=== PATIENT | male | born 1950 | race Caucasian/White ===

== ENCOUNTER 2016-09-06 15:36 | Emergency (ER) | payer OTHER ==
[2016-09-06 15:41] VITALS: BP 116/92; BMI 38.7
[2016-09-06 16:27] LABS: BILIRUBIN,URINE NEGATIVE (NEGATIVE); BLOOD/HEMOGLOBIN,URINE 5+ (NEGATIVE); GLUCOSE, URINE NEGATIVE (NEGATIVE); KETONES,URINE 1+ (NEGATIVE); LEUKOCYTE ESTERASE ,URINE 1+ (NEGATIVE); NITRITES,URINE NEGATIVE (NEGATIVE); PROTEIN,URINE 2+ (NEGATIVE); UROBILINOGEN,URINE 1+ (NORMAL)
[2016-09-06 16:54] LABS: AMORPHOUS SEDIMENT,UR 1+ /HPF (NEGATIVE); APPEARANCE,URINE CLEAR (CLEAR); BACTERIA,URINE TRACE /HPF (NEGATIVE); COLOR,URINE DARK YELLOW (YELLOW); MUCUS,URINE MODERATE /HPF (NEGATIVE); RBC,URINE 55-60 /HPF (NEGATIVE); SQUAMOUS EPITHELIAL CELL,UR FEW /HPF (NEGATIVE)
[2016-09-06] MEDS ORDERED: NS 1000 ML 1,000 ML IV ONE (16:58)
--- NOTE | 2016-09-06 16:58 | DR.MBACK ---
HPI - Time Seen Time seen: 16:45 - PCP Primary Care Physician: THONG - Complaint Chief Complaint Doctors Comments: l flank pain Chief Complaint:: PT. C/O LEFT LOWER BACK PAIN AND LEFT FLANK PAIN, POSSIBLE KIDNEY STONE. PAIN OCCURED TWO HOURS HOT BOX SPOTTER. PT. TOOK SOME PAIN MEDICATION HOT BOX SPOTTER WHICH RELIEVED HIS PAIN FROM A 10 TO A 2. - Reviewed Nurses Notes Review: Yes - Source History Provided: Patient - Mode of Arrival Mode of Arrival: Ambulatory - Timing Onset of Chief Complaint: 09/06/16 - Duration Duration: Constant Duration: Hours - Location Back Pain Location: Left, Lower, BACK, Flank, Lumbar Radiation To: None - Severity Severity: Extreme - Quality Quality: Cramping, Tearing - Context Onset: Spontaneous Circumstance: Unknown History of: Urolithiasis - Modifying Factors Worsened By: Movement, Twisting, Breathing, Walking - Associated Signs and Symptoms Numbness: None Weakness: None PMH - PMH Past Medical History: Yes Past Medical History: Arthritis, GERD, Hypothyroidism, Kidney Stones Past Surgical History: Yes Surgical History: Ortho Surgery, Other Past Surgical History Comment: HEMORRHOID, SINUS SURGERY X 2 - Family History History of Family Medical Conditions: No - Social History Does patient currently use any type of tobacco product: No Have you used tobacco products in the last 12 months: No Type of Tobacco Use: None Does any household member use tobacco: No Alcohol Use: None Do you use any recreational Drugs:: No Lives With: Spouse Lives Where: Home - infectious screening In the last 2 months have you had wt loss of >10#?: NO Have you had fever, night sweats or hemotysis?: No Have you traveled outside the country in the last 6 months?: No Isolation: Standard ROS - Review of Systems Respiratoy: No Symptoms Reported Cardiovascular: No Symptoms Reported Gastrointestinal/Abdominal: No Symptoms Reported Genitourinary: No Symptoms Reported, Hematuria, Other (l flan k pain) Neurological: No Symptoms Reported Musculoskeletal: Back Pain Integumentary: No Symptoms Reported Hematologic/Lymphatic: No Symptoms Reported Endocrine: No Symptoms Reported Psychiatric: No Symptoms Reported All Other Systems: Reviewed and Negative PE - Vital Signs Vitals: Temperature 98.0 F Pulse Rate 93 Respiratory Rate 17 Blood Pressure [Right Arm] 146/68 Blood Pressure 116/92 O2 Sat by Pulse Oximetry 95 - General Limitations: No Limitations - Chest Chest Inspection: Normal Inspection - Respiratory Respiratory Exam: Normal Lung Sounds Bilat Respiratory Exam: Bilateral Clear to Auscultation - Cardiovascular Cardiovascular Exam: Regular Rate, Normal Rhythm, Normal Heart Sounds - Abdominal Exam Abdominal Tenderness: Other (l flank pain) - Back Back Exam: (L) CVA Tenderness - Psychiatric Psychiatric Exam: Normal Affect, Normal Mood - Skin Skin Exam: Warm, Dry, Intact, Normal Color ROR - Labs Reviewed Laboratory: Specimen Type Clean catch urine 09/06/16 16:19 Urine Color Dark yellow (YELLOW) 09/06/16 16:19 Urine Appearance Clear (CLEAR) 09/06/16 16:19 Urine pH 5.0 (5.0 - 8.0) 09/06/16 16:19 Ur Specific Lyons 1.025 (1.000-1.030) 09/06/16 16:19 Urine Protein 2+ (NEGATIVE) 09/06/16 16:19 Urine Glucose (UA) Negative (NEGATIVE) 09/06/16 16:19 Urine Ketones 1+ (NEGATIVE) 09/06/16 16:19 Urine Occult Blood 5+ (NEGATIVE) 09/06/16 16:19 Urine Nitrite Negative (NEGATIVE) 09/06/16 16:19 Urine Bilirubin Negative (NEGATIVE) 09/06/16 16:19 Urine Urobilinogen 1+ (NORMAL) 09/06/16 16:19 Ur Leukocyte Esterase 1+ (NEGATIVE) 09/06/16 16:19 Urine RBC 55-60 /HPF (NEGATIVE) 09/06/16 16:19 Urine WBC 2-3 /HPF (NEGATIVE) 09/06/16 16:19 Ur Squamous Epith Cells Few /HPF (NEGATIVE) 09/06/16 16:19 Amorphous Sediment 1+ /HPF (NEGATIVE) 09/06/16 16:19 Urine Bacteria Trace /HPF (NEGATIVE) 09/06/16 16:19 Urine Mucus Moderate /HPF (NEGATIVE) 09/06/16 16:19 Ur Culture Indicated? No/not indicated 09/06/16 16:19 - Diagnosis Discharge Problem: Urolithiasis - Discharge Plan Disposition: 01 HOME, SELF-CARE Condition: Stable - Follow ups/Referrals Follow ups/Referrals: Jf Jay [Primary Care Provider] - 3 days - Instructions
[2016-09-06 17:17] LABS: BASOPHILS % (AUTO) 0.4 % (0.2-1.0); EOSINOPHILS # (AUTO) 0.1 x10^3/uL (0.0-0.2); EOSINOPHILS % (AUTO) 1.3 % (0.9-2.9); HEMATOCRIT 46.6 % (42.0-54.0); HEMOGLOBIN 16.3 g/dL (13.5-18.0); LYMPHOCYTES # (AUTO) 1.3 X10^3/uL (1.3-2.9); LYMPHOCYTES % (AUTO) 17.7 % (21.0-51.0); MEAN CORPUSCULAR HEMOGLOBIN 32.1 pg (27.0-34.0); MEAN CORPUSCULAR HGB CONC 34.9 g/dL (33.0-35.0); MEAN CORPUSCULAR VOLUME 91.9 fL (80.0-100.0); MEAN PLATELET VOLUME 9.1 fL (7.4-11.0); MONOCYTES # (AUTO) 0.6 x10^3/uL (0.3-0.8); MONOCYTES % (AUTO) 8.2 % (0.0-13.0); NEUTROPHILS # (AUTO) 5.5 x10^3/uL (2.2-4.8); NEUTROPHILS % (AUTO) 72.4 % (42.0-75.0); PLATELET COUNT 189 X10^3/uL (150.0-450.0); RED BLOOD COUNT 5.07 X10^6/uL (4.7-6.0); RED CELL DISTRIBUTION WIDTH 14.4 % (11.6-16.5); WHITE BLOOD COUNT 7.6 X10^3/uL (3.6-10.0)
[2016-09-06 17:30] LABS: ALANINE AMINOTRANSFERASE 35 Units/L (12-78); ALKALINE PHOSPHATASE 89 Units/L (46-116); ASPARTATE AMINO TRANSFERASE 21 Units/L (15-37); BLOOD UREA NITROGEN 20 mg/dL (7-18); CALCIUM 8.9 mg/dL (8.5-10.1); CARBON DIOXIDE 26.6 mmol/L (21-32); CHLORIDE 106 mmol/L (98-107); CREATININE 1.29 mg/dL (0.70-1.30); GLUCOSE 96 mg/dL (65-99); SODIUM 141 mmol/L (136-145); TOTAL PROTEIN 7.6 g/dL (6.4-8.2); eGFR BLACK RACES > 60 (>60); eGFR NON BLACK RACES 59 (>60)
--- NOTE | 2016-09-06 17:59 | CT ---
HISTORY: Left flank pain, possible kidney stone. Study: CT abdomen and pelvis without contrast Comparison: Acute abdominal series dated October 05 2015. Technique: Multiple axial images of the abdomen and pelvis were obtained from the lung bases to the pubic symph ysis without the administration of IV contrast. Dose reduction techniques including Automated Expos ure Control (AEC) and adjustment of mA and kV were utilized. Findings: Bibasilar scarring versus atelectasis. Otherwise, the visualized portions of the lung bases are unre markable. 3 cm right inferior renal pole simple appearing cyst. The right kidney is otherwise unrema rkable. Multiple nonobstructing left renal nephroliths, the largest measuring 3 mm within the interp olar left kidney. The liver, spleen, pancreas, and adrenal glands are unremarkable in their CT appea farrukh. The gallbladder is unremarkable in its CT appearance. No significant mesenteric lymphadenopa thy or stranding can be observed. No free fluid or free air is seen within the abdomen. Scattered colonic diverticular without evidence of diverticulitis. Otherwise, the visualized large and small b owel appear normal. The appendix is normal. The urinary bladder is grossly unremarkable. Remote comp ression fracture of the L4 vertebral body. Bilateral L5 pars defects with associated grade 2/3 anter ior listhesis of L5 on S1. Remaining osseous structures appear normal for age. IMPRESSION: 1. No CT evidence of acute abdominal/pelvic pathology. 2. Other chronic findings as above. Reported By:
== END 2016-09-06 18:27 | disposition home or self-care (01) ==
LOC: ER 15:53
DX: N20.9 Urinary calculus, unspecified (principal)
CPT/HCPCS: 36415; 74176; 80053; 81001; 85025; 96365; 99283; A4222

== ENCOUNTER 2018-11-27 17:18 | Observation (INO) ==
[2018-11-27 18:06] VITALS: BMI 38.2
[2018-11-27] MEDS ORDERED: NS 1000 ML 1,000 ML ONE (18:07)
[2018-11-27] MEDS: NS 1000 ML 1,000 ML IV SCH (18:34)
[2018-11-27 18:49] LABS: BASOPHILS % (AUTO) 0.4 % (0.2-1.0); EOSINOPHILS # (AUTO) 0.1 x10^3/uL (0.0-0.2); EOSINOPHILS % (AUTO) 1.6 % (0.9-2.9); HEMATOCRIT 46.9 % (42.0-54.0); HEMOGLOBIN 15.8 g/dL (13.5-18.0); LYMPHOCYTES # (AUTO) 1.5 X10^3/uL (1.3-2.9); LYMPHOCYTES % (AUTO) 28.5 % (21.0-51.0); MEAN CORPUSCULAR HEMOGLOBIN 28.2 pg (27.0-34.0); MEAN CORPUSCULAR HGB CONC 33.7 g/dL (33.0-35.0); MEAN CORPUSCULAR VOLUME 83.7 fL (80.0-100.0); MEAN PLATELET VOLUME 8.4 fL (7.4-11.0); MONOCYTES # (AUTO) 0.5 x10^3/uL (0.3-0.8); MONOCYTES % (AUTO) 9.1 % (0.0-13.0); NEUTROPHILS # (AUTO) 3.2 x10^3/uL (2.2-4.8); NEUTROPHILS % (AUTO) 60.4 % (42.0-75.0); PLATELET COUNT 173 X10^3/uL (150.0-450.0); RED CELL DISTRIBUTION WIDTH 18.9 % (11.6-16.5); WHITE BLOOD COUNT 5.3 X10^3/uL (3.6-10.0)
[2018-11-27 19:11] LABS: ALANINE AMINOTRANSFERASE 38 Units/L (12-78); ALKALINE PHOSPHATASE 85 Units/L (46-116); ASPARTATE AMINO TRANSFERASE 20 Units/L (15-37); BLOOD UREA NITROGEN 25 mg/dL (7-18); CALCIUM 8.7 mg/dL (8.5-10.1); CHLORIDE 102 mmol/L (98-107); CKMB % 0.7 % (<4); CREATINE KINASE 234 Units/L (39-308); CREATINE KINASE MB 1.7 ng/mL (0-4.0); CREATININE 1.34 mg/dL (0.70-1.30); MAGNESIUM 1.8 mg/dL (1.7-2.9); SODIUM 137 mmol/L (136-145); TOTAL PROTEIN 7.3 g/dL (6.4-8.2); TROPONIN I 0.07 ng/mL (0-1.5); eGFR NON BLACK RACES 56 (>60)
[2018-11-27] MEDS ORDERED: MORPHINE SULFATE INJ 2 MG INJ IVP PRN (21:08)
--- NOTE | 2018-11-27 21:11 | DR.UPDATE ---
H&P Update History and Physical Update: History and Physical reviewed and patient examined. Changes noted: Yes with the following: WAS SEEN IN THE OFFICE TODAY FOR COMPLAINTS OF CHEST PAIN, SHORTNESS OF BREATH, DIZZINESS, AND NEAR SYNCOPE. WE ADMITTED PATIENT FOR FURTHER EVALUATION AND TREATMENT. ON ADMISSION WE PLAN TO OBTAIN SERIAL CARDIAC ENZYMES AND EKGS, CBC, CMP, BRAIN CT, CAROTID DOPPLER, AND ECHO. WE WILL START NS AT 80ML/HR AND MORPHINE 2MG IV Q4H PRN PAIN. OTHERWISE, WE WILL FOLLOW UP WITH AM LABS AND CONTINUE TO MONITOR. Prescription drug monitoring program results: PDMP was not reviewed
--- NOTE | 2018-11-27 21:59 | CT ---
CT HEAD WITHOUT CONTRAST CLINICAL HISTORY: 68-year-old male with dizziness and near syncopal episode. COMPARISON: None. TECHNIQUE: Multiple, non-contrasted axial CT images were obtained from the skull base to the cranial vertex. Coronal and sagittal reformats were performed. Dose reduction techniques including Automated Exposure Control (AEC) and adjustment of mA and kV were utilized. FINDINGS: There are no abnormal intra- or extra-axial fluid collections, midline shift, or mass effect. Lucas-white differentiation is normal. Global cortical involutional changes are present that are advanced for the patient's stated age. The ventricular system is enlarged but commensurate with the degree of sulcal prominence. Periventricular and supraventricular white matter hypodensity is present that is nonspecific in appearance, but most likely to represent microvascular ischemic changes. Atherosclerotic vascular calcification is present within the carotid siphons. The imaged paranasal sinuses, mastoid air cells, and tympanic spaces are clear. IMPRESSION: 1. No definite evidence of an acute intracranial process. If clinical concern persists for acute stroke and it would alter patient management, consider MRI/MRA brain. 2. Moderate microvascular white matter ischemic changes, with associated volume loss. Reported By:
--- NOTE | 2018-11-27 22:00 | RAD ---
HISTORY: 68-year-old male with chest pain and shortness of breath. Study: Frontal view of the chest. Comparison: Acute abdominal series radiograph 10/05/2015 Findings: Interval placement right reverse total shoulder arthroplasty with left shoulder arthroplasty unchanged. The trachea is midline. The cardiac silhouette is stably enlarged with chronic prominence interstitium and perihilar lung markings with low lung volumes. The lungs are clear without focal consolidation, effusion or pneumothorax. Soft tissues are unremarkable. Osseous structures are unremarkable. IMPRESSION: 1. Chronic cardiomegaly and findings suggesting COPD. Reported By:
[2018-11-27 22:18] LABS: CKMB % 0.7 % (<4); CREATINE KINASE MB 1.4 ng/mL (0-4.0); TROPONIN I 0.06 ng/mL (0-1.5)
[2018-11-28 02:39] LABS: BASOPHILS % (AUTO) 0.2 % (0.2-1.0); EOSINOPHILS # (AUTO) 0.1 x10^3/uL (0.0-0.2); EOSINOPHILS % (AUTO) 2.8 % (0.9-2.9); HEMATOCRIT 42.5 % (42.0-54.0); HEMOGLOBIN 14.3 g/dL (13.5-18.0); LYMPHOCYTES # (AUTO) 1.4 X10^3/uL (1.3-2.9); LYMPHOCYTES % (AUTO) 33.5 % (21.0-51.0); MEAN CORPUSCULAR HEMOGLOBIN 27.9 pg (27.0-34.0); MEAN CORPUSCULAR HGB CONC 33.7 g/dL (33.0-35.0); MEAN CORPUSCULAR VOLUME 82.7 fL (80.0-100.0); MEAN PLATELET VOLUME 7.9 fL (7.4-11.0); MONOCYTES # (AUTO) 0.4 x10^3/uL (0.3-0.8); MONOCYTES % (AUTO) 10.3 % (0.0-13.0); NEUTROPHILS # (AUTO) 2.2 x10^3/uL (2.2-4.8); NEUTROPHILS % (AUTO) 53.2 % (42.0-75.0); PLATELET COUNT 149 X10^3/uL (150.0-450.0); RED BLOOD COUNT 5.14 X10^6/uL (4.7-6.0); RED CELL DISTRIBUTION WIDTH 18.9 % (11.6-16.5)
[2018-11-28 02:54] LABS: ALANINE AMINOTRANSFERASE 37 Units/L (12-78); ALBUMIN 3.1 g/dL (3.4-5.0); ALKALINE PHOSPHATASE 75 Units/L (46-116); ASPARTATE AMINO TRANSFERASE 20 Units/L (15-37); BLOOD UREA NITROGEN 27 mg/dL (7-18); CALCIUM 7.9 mg/dL (8.5-10.1); CHLORIDE 105 mmol/L (98-107); COR CA(FOR HYPOALB) 8.6 mg/dL (8.5-10.1); CREATININE 1.23 mg/dL (0.70-1.30); SODIUM 138 mmol/L (136-145); TOTAL PROTEIN 5.9 g/dL (6.4-8.2); eGFR NON BLACK RACES > 60 (>60)
[2018-11-28 03:03] LABS: CKMB % 0.7 % (<4); CREATINE KINASE MB 1.3 ng/mL (0-4.0); TROPONIN I 0.07 ng/mL (0-1.5)
[2018-11-28] MEDS: NS 1000 ML 1,000 ML IV SCH ×3 (06:06→20:14)
[2018-11-28] MEDS ORDERED: AFLURIA II4 or FLUARIX II4 IM ONE (08:02)
[2018-11-28] MEDS ORDERED: PREVNAR 13 IM ONE (08:02)
[2018-11-28] MEDS: ECOTRIN TAB 325 MG PO SCH (08:30)
[2018-11-28] MEDS ORDERED: PHARMACY CONSULT - DOSE _____ XX SCH (10:00)
[2018-11-28] MEDS: LOVENOX INJ 40 MG SYR SC SCH (10:20)
[2018-11-28 10:44] LABS: CKMB % 0.7 % (<4); CREATINE KINASE MB 1.2 ng/mL (0-4.0); TROPONIN I 0.03 ng/mL (0-1.5)
--- NOTE | 2018-11-28 13:39 | VAS ---
HISTORY: Dizziness, near syncope Study: Bilateral Carotid Ultrasound Comparison: None Technique: Multiple bentley scale and color flow Doppler images of the right and left carotid arterial system were obtained. The vertebral arterial system was evaluated as well. Findings: Normal color flow Doppler is seen throughout the right and left carotid arterial system. There is minimal plaque present at the bilateral carotid bifurcations. Peak systolic velocity in the right ICA is 60 cm/sec. Peak systolic velocity in the left ICA is 57 cm/sec. The right ICA/CCA ratio is less than 1. The left ICA/CCA ratio is less than 1. The right and left vertebral arteries demonstrate antegrade flow. IMPRESSION: 1. No hemodynamically significant stenosis identified. 2. Normal antegrade flow in the vertebral arteries. Reported By:
[2018-11-28 14:20] LABS: CKMB % 0.7 % (<4); CREATINE KINASE MB 1.2 ng/mL (0-4.0); TROPONIN I 0.04 ng/mL (0-1.5)
[2018-11-28 18:13] LABS: CKMB % 0.6 % (<4); CREATINE KINASE 159 Units/L (39-308); CREATINE KINASE MB < 1.0 ng/mL (0-4.0); TROPONIN I 0.03 ng/mL (0-1.5)
[2018-11-29 06:57] LABS: BASOPHILS % (AUTO) 0.2 % (0.2-1.0); EOSINOPHILS # (AUTO) 0.1 x10^3/uL (0.0-0.2); EOSINOPHILS % (AUTO) 2.1 % (0.9-2.9); HEMATOCRIT 45.3 % (42.0-54.0); HEMOGLOBIN 15.2 g/dL (13.5-18.0); LYMPHOCYTES # (AUTO) 1.1 X10^3/uL (1.3-2.9); LYMPHOCYTES % (AUTO) 22.5 % (21.0-51.0); MEAN CORPUSCULAR HEMOGLOBIN 28.1 pg (27.0-34.0); MEAN CORPUSCULAR HGB CONC 33.6 g/dL (33.0-35.0); MEAN CORPUSCULAR VOLUME 83.6 fL (80.0-100.0); MEAN PLATELET VOLUME 8.4 fL (7.4-11.0); MONOCYTES # (AUTO) 0.3 x10^3/uL (0.3-0.8); MONOCYTES % (AUTO) 7.2 % (0.0-13.0); NEUTROPHILS # (AUTO) 3.2 x10^3/uL (2.2-4.8); PLATELET COUNT 147 X10^3/uL (150.0-450.0); RED BLOOD COUNT 5.42 X10^6/uL (4.7-6.0); RED CELL DISTRIBUTION WIDTH 19.1 % (11.6-16.5); WHITE BLOOD COUNT 4.8 X10^3/uL (3.6-10.0)
[2018-11-29 07:04] LABS: ALANINE AMINOTRANSFERASE 40 Units/L (12-78); ALBUMIN 3.2 g/dL (3.4-5.0); ALKALINE PHOSPHATASE 81 Units/L (46-116); ASPARTATE AMINO TRANSFERASE 21 Units/L (15-37); BLOOD UREA NITROGEN 18 mg/dL (7-18); CARBON DIOXIDE 27.2 mmol/L (21-32); CHLORIDE 106 mmol/L (98-107); COR CA(FOR HYPOALB) 8.6 mg/dL (8.5-10.1); COR NA(FOR HYPERGLY) 141 mmol/L (136-145); CREATININE 1.02 mg/dL (0.70-1.30); SODIUM 141 mmol/L (136-145); TOTAL PROTEIN 6.2 g/dL (6.4-8.2); eGFR NON BLACK RACES > 60 (>60)
[2018-11-29] MEDS: LOVENOX INJ 40 MG SYR SC SCH (08:46)
[2018-11-29] MEDS: ECOTRIN TAB 325 MG PO SCH (08:46)
[2018-11-29 12:04] VITALS: BP 139/70
[2018-11-29] MEDS: NS 1000 ML 1,000 ML IV SCH (13:03)
--- NOTE | 2018-11-30 19:49 | PCM.PROG ---
Progress Note - Progress Note for Day of Date of Exam: 11/28/18 - Subjective Subjective: WAS ADMITTED FOR COMPLAINTS OF CHEST PAIN, SHORTNESS OF BREATH, DIZZINESS, AND NEAR SYNCOPE. TODAY, HE IS ALERT AND ORIENTED, LYING IN BED ON MORNING ROUNDS. HE CONTINUES WITH WEAKNESS AND DIZZINESS AT TIMES. HE DENIES SHORTNESS OF BREATH. RADIOLOGY IS IN THE ROOM AT THIS TIME FOR A CAROTID ARTERY ULTRASOUND. ON EXAMINATION, HEART IS REGULAR IN RATE AND RHYTHM. BILATERAL LUNGS ARE NOTED WITH DIMINISHED LUNG SOUND THROUGHOUT. ABDOMEN IS ROUND, SOFT, AND NON-TENDER WITH NORMAL BOWEL SOUNDS NOTED IN ALL QUADRANTS. HIS VITALS THIS MORNING ARE: 97.6-56-18-99%-127/74. LABS WERE OBTAINED. ABNORMAL LAB VALUES INCLUDE THE FOLLOWING: PLT COUNT 149, BUN 27, GLUCOSE 109, CALCIUM 7.9, TOTAL PROTIEN 5.9, ALBUMIN 3.1. A BRAIN CT WAS OBTAINED ON ADMISSION AND REVEALED: No definite evidence of an acute intracranial process. If clinical concern persists for acute stroke and it would alter patient management, consider MRI/MRA brain. Moderate microvascular white matter ischemic changes, wi th associated volume loss. A CHEST XRAY WAS OBTAINED AND REVEALED: Chronic cardiomegaly and findings suggesting COPD. ECHO REVEALED AN EJECTION FRACTION OF 57%. NO CHANGES NOTED TO EKGS. HE IS CURRENTLY RECEIVING NORMAL SALINE AT 80ML/HR, MORPHINE 2MG IV Q4H PRN PAIN, ASA 325MG PO DAILY. TODAY, WE WILL OBTAIN A CARDIAC CTA AND START PROPHYLACTIC LOVENOX. OTHERWISE, WE WILL REPEAT SERIAL CARDIAC ENZYMES AND EKGS AND FOLLOW UP WITH AM LABS. - Past Medical Family Social History Past Med/Fam/Surg Hx: No changes since H&P Allergies: Allergies No Known Drug Allergies Allergy (Verified 09/06/16 15:41) - Review of Systems ROS: No change since H&P - Vital Signs and I&O's Vital Signs: Temperature 98.5 F Pulse Rate [Right Brachial] 54 Pulse Rate [Left Brachial] 50 Respiratory Rate 20 Blood Pressure [Left Arm] 120/67 Blood Pressure [Right Arm] 139/70 Blood Pressure 116/92 O2 Sat by Pulse Oximetry 99 Intake and Output: Intake & Output 11/28/18 11/29/18 11/30/18 12/01/18 11:59 11:59 11:59 11:59 Intake Total 1621 / 1621 2600 / 2600 Balance 1621 / 1621 2600 / 2600 - Physical Exam Oriented: Normal Eyes: Normal Ear: Normal Nose: Normal Throat: Normal Respiratory: Normal Cardiovascular: Normal : Normal Auscultation: Bowel Sounds: Normal Palpation: Normal Tenderness: Normal Skin: Normal Musculoskeletal: Normal Psychiatric: Normal Mood Description: Calm Affect: Normal Speech Pattern: Clear, Appropriate - Laboratory and Diagnostics Result Diagrams: 11/29/18 05:39 11/29/18 05:39 Labs: Laboratory WBC 4.8 X10^3/uL (3.6-10.0) 11/29/18 05:39 RBC 5.42 X10^6/uL (4.7-6.0) 11/29/18 05:39 Hgb 15.2 g/dL (13.5-18.0) 11/29/18 05:39 Hct 45.3 % (42.0-54.0) 11/29/18 05:39 MCV 83.6 fL (80.0-100.0) 11/29/18 05:39 MCH 28.1 pg (27.0-34.0) 11/29/18 05:39 MCHC 33.6 g/dL (33.0-35.0) 11/29/18 05:39 RDW 19.1 % (11.6-16.5) H 11/29/18 05:39 Plt Count 147 X10^3/uL (150.0-450.0) L 11/29/18 05:39 MPV 8.4 fL (7.4-11.0) 11/29/18 05:39 Neut % (Auto) 68.0 % (42.0-75.0) 11/29/18 05:39 Lymph % (Auto) 22.5 % (21.0-51.0) 11/29/18 05:39 [place] % (Auto) 7.2 % (0.0-13.0) 11/29/18 05:39 Eos % (Auto) 2.1 % (0.9-2.9) 11/29/18 05:39 Baso % (Auto) 0.2 % (0.2-1.0) 11/29/18 05:39 Neut # (Auto) 3.2 x10^3/uL (2.2-4.8) 11/29/18 05:39 Lymph # (Auto) 1.1 X10^3/uL (1.3-2.9) L 11/29/18 05:39 [place] # (Auto) 0.3 x10^3/uL (0.3-0.8) 11/29/18 05:39 Eos # (Auto) 0.1 x10^3/uL (0.0-0.2) 11/29/18 05:39 Baso # (Auto) 0.0 X10^3/uL (0.0-0.1) 11/29/18 05:39 Absolute Nucleated RBC 0.0 /100WBC 11/29/18 05:39 PT 12.6 SECONDS (11.8-14.3) 11/27/18 18:26 INR Target Range - 11/27/18 18:26 INR 0.98 (0.8-1.3) 11/27/18 18:26 APTT 26.6 SECONDS (22.9-36.5) 11/27/18 18:26 PTT Comment - 11/27/18 18:26 Sodium 141 mmol/L (136-145) 11/29/18 05:39 Corrected Sodium 141 mmol/L (136-145) 11/29/18 05:39 Potassium 4.5 mmol/L (3.5-5.1) 11/29/18 05:39 Chloride 106 mmol/L (98-107) 11/29/18 05:39 Carbon Dioxide 27.2 mmol/L (21-32) 11/29/18 05:39 BUN 18 mg/dL (7-18) 11/29/18 05:39 Creatinine 1.02 mg/dL (0.70-1.30) 11/29/18 05:39 Est GFR (MDRD) Af Amer > 60 (>60) 11/29/18 05:39 Est GFR (MDRD) Non-Af > 60 (>60) 11/29/18 05:39 Glucose 112 mg/dL (65-99) H 11/29/18 05:39 Calcium 8.0 mg/dL (8.5-10.1) L 11/29/18 05:39 Corrected Calcium 8.6 mg/dL (8.5-10.1) 11/29/18 05:39 Magnesium 1.8 mg/dL (1.7-2.9) 11/27/18 18:26 Total Bilirubin 0.30 mg/dL (0.2-1.0) 11/29/18 05:39 AST 21 Units/L (15-37) 11/29/18 05:39 ALT 40 Units/L (12-78) 11/29/18 05:39 Alkaline Phosphatase 81 Units/L (46-116) 11/29/18 05:39 Creatine Kinase 159 Units/L (39-308) 11/28/18 17:39 CK-MB (CK-2) < 1.0 ng/mL (0-4.0) 11/28/18 17:39 CK/CKMB % Calc 0.6 % (<4) 11/28/18 17:39 Troponin I 0.03 ng/mL (0-1.5) 11/28/18 17:39 Total Protein 6.2 g/dL (6.4-8.2) L 11/29/18 05:39 Albumin 3.2 g/dL (3.4-5.0) L 11/29/18 05:39 Globulin 3.0 g/dL (2.5-4.5) 11/29/18 05:39 Albumin/Globulin Ratio 1.1 Ratio (1.1-2.1) 11/29/18 05:39 - Plan (1) Chest pain, rule out acute myocardial infarction Status: Acute Plan: OBTAIN CARDIAC CTA TODAY, SERIAL CARDIAC ENZYMES AND EKGS, CONTINUE TO MONITOR (2) Weakness Status: Acute (3) Dizziness Status: Acute (4) Shortness of breath Status: Acute
--- NOTE | 2018-12-01 15:50 | CT ---
CORONARY CTA WITHOUT AND WITH CONTRAST CALCIUM SCORE CLINICAL INDICATION: Chest pain. COMPARISON: None PROCEDURE: Gated images of the coronary arteries were obtained before and after the administration of IV contrast. Coronary artery calcium scoring was performed. Dose reduction techniques including Automated Exposure Control (AEC) and adjustment of mA and kV were utlized. FINDINGS: Coronary CTA- LM: LAD: There is calcified plaque involving the proximal LAD resulting in approximately 30% stenosis. LCX: RCA: Coronary calcium scoring - 137 LM: LAD: 124 LCX: RCA: 13 Ejection fraction 55% IMPRESSION: 1. Calcified plaque of the proximal LAD resulting in approximately 30% stenosis. 2. Calcium score of 137. This places the patient at the 25th to 50th percentile for males of similar age. Definite, at least moderate atherosclerotic plaque. Mild coronary artery disease highly likely with significant narrowings possible. Reported By:
== END 2018-11-29 14:35 | disposition home or self-care (01) ==
LOC: MED/SURG
PROVIDERS: ADMIT Internal Medicine; ATTEND Internal Medicine
DX: E11.65 Type 2 diabetes mellitus with hyperglycemia; R06.02 Shortness of breath; E78.5 Hyperlipidemia, unspecified; R53.83 Other fatigue; R42 Dizziness and giddiness; R55 Syncope and collapse; R07.89 Other chest pain; I20.9 Angina pectoris, unspecified; E03.8 Other specified hypothyroidism
CPT/HCPCS: 36415; 70450; 71010; 71045; 75574; 80053; 82550; 82553; 83735; 84484; 85025; 85610; 85730; 90674; 90686; 93005; 93306; 93880; 94760; 96367; 96372; A4216; A4222; 90670; G0378; J7030